=== PATIENT | male | born 1955 | race Caucasian/White ===

== ENCOUNTER 2019-06-06 09:37 | Emergency (ER) | payer OTHER, MEDICARE ==
--- NOTE | 2019-06-06 09:45 | PDOC ---
History of Present Illness - General Chief Complaint: Respiratory Stated Complaint: FEVER Time Seen by Provider: 06/06/19 09:45 History Source: Patient Exam Limitations: No Limitations - History of Present Illness Initial Comments: 64 year old male with PMH HTN, BPH (recently started on flomax, recent urinary cath removed), multiple myeloma (last neutropenic fever 01/2018) presented to ED for fever since last night. Pt reported dry cough, body aches, sore throat. Pt denied nausea, vomiting, diarrhea, chest pain, shortness of breath, rash, dysuria, increased urinary frequency, headache. Pt reported he had a urinary catheter placed in the last couple of weeks for BPH, saw urology outpatient, had it removed and was started on Flomax. ROS General: denied fever, chills, generalized weakness. HEENT: denied sore throat, rhinorrhea, ear pain. Cardiovascular: denied chest pain, palpitations, syncope, diaphoresis. Respiratory: denied shortness of breath, cough, sputum production, hemoptysis. Gastrointestinal: denied abdominal pain, nausea, vomiting, diarrhea, constipation, blood in stool. Genitourinary: denied dysuria, increased urinary frequency, hematuria, urinary incontinence, flank pain. Back: denied back pain. Musculoskeletal: denied joint pain, muscle pain, joint swelling. Neurological: denied headache, dizziness, numbness, tingling, weakness. Integumentary: denied rash, laceration, abrasion. Hematologic/Lymphatic: denied bruising or bleeding. PE Constitutional: Well-nourished, Well-developed, appearing stated age. HEENT: head is normocephalic, atraumatic. EOMI. PERRLA. no posterior pharyngeal erythema. no tonsillar swelling or exudates bilaterally. uvula midline. no peritonsillar swelling, tenderness or abscess. no jaw tenderness or misalignment. Neck: supple. Full ROM. Cardiovascular: regular heart rhythm. no murmurs. no pericardial friction rub. Respiratory: clear to auscultation bilaterally, but decreased breath sounds on the right. no crackles, rhonchi or wheezing. no stridor. Gastrointestinal: soft, nontender. normal bowel sounds. no rebound, guarding, masses. Extremities: peripheral pulses intact. no lower extremity edema. Neurological: CN 2-12 grossly intact. moves all four extremities. Psych: awake, alert, oriented x3. follows commands. answers questions appropriately. Past History - Past Medical History Allergies/Adverse Reactions: Allergies Allergy/AdvReac Type Severity Reaction Status Date / Time epinephrine Allergy Severe Low Blood Verified 06/06/19 09:48 Pressure Home Medications: Ambulatory Orders Aspirin [Aspir-Low] 81 mg PO HS 09/25/13 Multivitamin [Daily Vitamin] 1 each PO DAILY tablet 09/25/13 Divalproex Sodium [Depakote] 250 mg PO DAILY tablet 03/31/14 Gabapentin 300 mg PO HS capsule 03/31/14 Rosuvastatin Calcium [Crestor] 5 mg PO BIW tablet 07/01/14 Niacinamide [Niacin] 500 mg PO DAILY tablet 05/18/15 clonazePAM [KlonoPIN] 0.5 mg PO TID tablet 07/19/16 Desvenlafaxine Succinate [Pristiq] 100 mg PO DAILY tablet 11/15/16 Lurasidone HCl [Latuda -] 20 mg PO DAILY tablet 11/15/16 Dexamethasone 01/20/18 Divalproex [Depakote -] 750 mg PO HS 01/20/18 Lovastatin 10 mg PO HS 01/20/18 Valacyclovir HCl [Valtrex] 500 mg PO DAILY 01/20/18 Velcade 01/20/18 Acetaminophen [Tylenol .Regular Strength -] 650 mg PO Q6H PRN tablet 01/24/18 Doxycycline Hyclate 100 mg PO BID #28 capsule 01/24/18 Lidocaine 2% Jelly [Xylocaine 2% Jelly -] 1 applic TP BID #1 tube 05/25/19 Azithromycin [Zithromax 250mg Tablets -] 250 mg PO UTDICT #6 tab 06/06/19 - Psycho Social/Smoking Cessation Hx Smoking History: Unknown if ever smoked Have you smoked in the past 12 months: No Number of Cigarettes Smoked Daily: 0 If you are a former smoker, when did you quit?: 2009 Hx Alcohol Use: Yes (SOCIAL) Drug/Substance Use Hx: No Substance Use Type: Alcohol Hx Substance Use Treatment: No ED Treatment Course - LABORATORY CBC & Chemistry Diagram: 06/06/19 10:28 06/06/19 10:28 Medical Decision Making - Medical Decision Making 64 year old male with above PMH presented to ED for cough, body aches, fever since last night. Initial Vital Signs Temp Pulse Resp BP Pulse Ox 100 F H 116 H 20 139/84 97 06/06/19 09:39 06/06/19 09:39 06/06/19 09:39 06/06/19 09:39 06/06/19 09:39 Labs ordered: sepsis order set, influenza Imaging ordered: CXR Medications ordered: normal saline bolus 1000 cc once 06/06/19 10:16 Pt;s Oncologist Dr. Fitch called, , reported she would probably recommend pt be admitted, will call back with more lab work. 06/06/19 11:16 CXR report: Name: BARTOL[facility] KOENIG DEPARTMENT OF RADIOLOGY Phys: Nancy Jernigna RESIDENT : [id number] Age: 64 Sex: M [facility] Acct: [id number] Loc: [address] Exam Date: 06/06/19 Status: [facility] [place] [address] Unit Number: [id number] EXAM #: TYPE/EXAM: RESULT: [id number] RAD/CHEST PA LAT Chest: Fever and cough. 2 views of the chest reveal scoliosis with convexity to the right, clear well aerated lungs, normal mediastinum and sharp angles. The soft tissues are intact. Since 12/20/2018, there is no change of an adverse nature. Impression: No acute chest pathology. Reported By: Bartolome Geiger MD 06/06/19 1023 06/06/19 12:18 Laboratory Last Values WBC 4.6 K/mm3 (4.0-10.8) 06/06/19 10:28 RBC 3.51 M/mm3 (4.00-5.60) L 06/06/19 10:28 Hgb 11.5 GM/dl (11.7-16.9) L 06/06/19 10:28 Hct 36.3 % (35.4-49) 06/06/19 10:28 MCV 103.3 fl (80-96) H 06/06/19 10:28 MCH 32.9 pg (25.7-33.7) 06/06/19 10:28 MCHC 31.8 g/dl (32.0-35.9) L 06/06/19 10:28 RDW 14.8 % (11.9-15.9) 06/06/19 10:28 Plt Count 104 K/MM3 (134-434) L D 06/06/19 10:28 MPV 7.6 fl (7.5-11.1) 06/06/19 10:28 Absolute Neuts (auto) 3.5 K/mm3 06/06/19 10:28 Neutrophils % 76.0 % (42.8-82.8) 06/06/19 10:28 Lymphocytes % 13.3 % (8-40) D 06/06/19 10:28 Monocytes % 8.1 % (3.8-10.2) 06/06/19 10:28 Eosinophils % 2.2 % (0-4.5) D 06/06/19 10:28 Basophils % 0.4 % (0-2.0) 06/06/19 10:28 PT with INR 13.9 SEC (10.2-13.0) H 06/06/19 10:30 INR 1.25 (0.82-1.09) H 06/06/19 10:30 PTT (Actin FS) 28.8 SECONDS (25.2-36.5) 06/06/19 10:30 Sodium 138 mmol/L (136-145) 06/06/19 10:28 Potassium 3.3 mmol/L (3.5-5.1) L 06/06/19 10:28 Chloride 102 mmol/L (98-107) 06/06/19 10:28 Carbon Dioxide 27 mmol/L (21-32) 06/06/19 10:28 Anion Gap 9 MMOL/L (8-16) 06/06/19 10:28 BUN 15.0 mg/dl (7-18) 06/06/19 10:28 Creatinine 0.7 mg/dl (0.55-1.3) 06/06/19 10:28 Est GFR (CKD-EPI)AfAm 116.40 06/06/19 10:28 Est GFR (CKD-EPI)NonAf 100.43 06/06/19 10:28 Random Glucose 100 mg/dl (74-106) 06/06/19 10:28 Lactic Acid 1.0 mmol/L (0.4-2.0) 06/06/19 10:28 Calcium 8.0 mg/dl (8.5-10) L 06/06/19 10:28 Total Bilirubin 1.4 mg/dl (0.2-1) H 06/06/19 10:28 AST 19 U/L (15-37) 06/06/19 10:28 ALT 18 U/L (13-61) 06/06/19 10:28 Alkaline Phosphatase 42 U/L (45-117) L 06/06/19 10:28 Troponin I 0.03 ng/ml (0.00-0.05) 06/06/19 10:30 Total Protein 5.7 g/dl (6.4-8.2) L 06/06/19 10:28 Albumin 3.5 g/dl (3.4-5.0) 06/06/19 10:28 Influenza A (Rapid) Negative (Negative) 06/06/19 10:35 Influenza B (Rapid) Negative (Negative) 06/06/19 10:35 I discussed the results with Oncologist Dr. Fitch, she reported based on current lab results and pts current clinical status he could likely be discharged. Will wait for UA and rediscuss. 06/06/19 12:26 Urine Test Results Urine Color Yellow 06/06/19 10:18 Urine Appearance Clear 06/06/19 10:18 Urine pH 6.5 (4.5-8) 06/06/19 10:18 Urine Protein 1+ (NEGATIVE) H 06/06/19 10:18 Urine Glucose (UA) Negative (NEGATIVE) 06/06/19 10:18 Urine Ketones 1+ (NEGATIVE) H 06/06/19 10:18 Urine Blood Negative (NEGATIVE) 06/06/19 10:18 Urine Nitrite Negative (NEGATIVE) 06/06/19 10:18 Urine Bilirubin 1+ (NEGATIVE) H 06/06/19 10:18 Ur Leukocyte Esterase Negative (NEGATIVE) 06/06/19 10:18 Negative for UTI. 06/06/19 12:29 Vital Signs Temperature 99.5 F 06/06/19 11:30 Pulse Rate 84 06/06/19 11:30 Respiratory Rate 20 06/06/19 11:30 Blood Pressure 116/63 06/06/19 11:30 O2 Sat by Pulse Oximetry (%) 99 06/06/19 11:30 Pt reported improvement of symptoms. Fever improved with outpatient Tylenol use. Tachycardia improved with fever control and IV fluid hydration. Dr. Fitch advised discharge with Z-pack. Pt discharged, advised to F/U with Oncology Monday and PCP outpatient. Hold Rev until symptoms improve. Discussed with patient, he agreed with plan for care. Discharge - Discharge Information Problems reviewed: Yes Clinical Impression/Diagnosis: Viral syndrome, Cough Condition: Improved Disposition: HOME - Admission No - Additional Discharge Information Prescriptions: Azithromycin [Zithromax 250mg Tablets -] 250 mg PO UTDICT #6 tab - Follow up/Referral Referrals: Ji Jernigan MD [Primary Care Provider] - - Patient Discharge Instructions Patient Printed Discharge Instructions: DI for Viral Syndrome Additional Instructions: Follow up with your primary care doctor within 3 days regarding your Emergency Room visit. Your care is not complete until you follow up. Follow up with your oncologist ON MONDAY in the office regarding your Emergency Room visit. Your care is not complete until you follow up. Call the office today and tell them you were told you were going to be given an appointment. Drink lots of fluids to stay hydrated. TAKE Tylenol over the counter for pain/headache/fever. Take as advised on label. Wear a mask when out in public until you have been fever free for 24 hours. Wash your hands a lot to prevent spreading your infection. I have sent a prescription to your pharmacy for a Z-pack (antibiotic), take as advised on label. STOP taking your Revlemid until you are evaluated by your Oncologist. Return to the Emergency Department for increasing pain, increasing fever, chest pain, shortness of breath, lightheadedness, passing out, increasing weakness or any other new, worsening or concerning symptoms. - Post Discharge Activity
[2019-06-06] MEDS ORDERED: SODIUM CHLORIDE 1,000 ML IV STA (10:01)
[2019-06-06 10:02] VITALS: BMI 25.3
[2019-06-06 10:54] LABS: BASO % 0.4 % (0-2.0); EOS % 2.2 % (0-4.5); HEMATOCRIT 36.3 % (35.4-49); HEMOGLOBIN 11.5 GM/dl (11.7-16.9); LYMPH % 13.3 % (8-40); MCH 32.9 pg (25.7-33.7); MCHC 31.8 g/dl (32.0-35.9); MEAN CELL VOLUME 103.3 fl (80-96); MEAN PLT VOLUME 7.6 fl (7.5-11.1); MONO % 8.1 % (3.8-10.2); PLATELET COUNT 104 K/MM3 (134-434); RBC 3.51 M/mm3 (4.00-5.60); RDW 14.8 % (11.9-15.9); WHITE BLOOD COUNT 4.6 K/mm3 (4.0-10.8)
[2019-06-06 11:00] LABS: ALBUMIN 3.5 g/dl (3.4-5.0); BILIRUBIN,TOTAL 1.4 mg/dl (0.2-1); CREATININE 0.7 mg/dl (0.55-1.3); POTASSIUM 3.3 mmol/L (3.5-5.1); TOT PROT 5.7 g/dl (6.4-8.2)
[2019-06-06 11:15] LABS: ACTIVATED PTT 28.8 SECONDS (25.2-36.5)
[2019-06-06 11:19] LABS: INR 1.25 (0.82-1.09); PROTHROMBIN TIME (PATIENT) 13.9 SEC (10.2-13.0)
[2019-06-06 11:56] VITALS: BP 116/63; PULSE 84; TEMP 99.5
[2019-06-06 12:50] LABS: URINE MUCUS 2+
--- NOTE | 2019-06-07 13:38 | EKG ---
Test Reason : Blood Pressure : / mmHG Vent. Rate : 091 BPM Atrial Rate : 091 BPM P-R Int : 136 ms QRS Dur : 086 ms QT Int : 372 ms P-R-T Axes : 059 054 076 degrees QTc Int : 457 ms NORMAL SINUS RHYTHM SEPTAL INFARCT , AGE UNDETERMINED ABNORMAL ECG WHEN COMPARED WITH ECG OF 20-JAN-2018 17:01, NO SIGNIFICANT CHANGE WAS FOUND Confirmed by AMADEO ZAVALA MD ([id number]) on 06/07/2019 1:38:17 PM Referred By: JT AREVALO Confirmed By:AMADEO ZAVALA MD
--- NOTE | 2019-06-07 14:54 | PDOC ---
Attending Attestation - Resident Resident Name: Nancy Jernigan - ED Attending Attestation I have performed the following: I have examined & evaluated the patient, The case was reviewed & discussed with the resident, I agree w/resident's findings & plan, Exceptions are as noted - HPI HPI: 06/07/19 14:51 64-year-old male history of multiple myeloma currently getting oral chemo also history of BPH with a recent urinary indwelling catheter which was removed currently on Flomax here today complaining of subjective fevers and chills. Patient states symptoms started last night. He has had some generalized body aches and cough denies any nausea vomiting no abdominal pain denies any new known sick contacts no rash noted. States that he has had a history of neutropenia in the past but his most recent labs were normal. He follows with oncologist Dr. Fitch - Physicial Exam PE: 06/07/19 14:52 Patient is awake alert no acute distress has moist mucous membranes. There is some clear rhinorrhea lungs are clear bilaterally no appreciated crackles or wheezes. Heart is regular no murmurs rubs or gallops abdomen is soft nontender extremities are warm and well-perfused skin is warm and dry no appreciated rash patient is awake alert and oriented x3 - Medical Decision Making 06/07/19 14:52 64-year-old male history of multiple myeloma currently on chemo here today complaining of subjective fevers chills Reiger's and body aches. With a known recent urinary catheterization. On my exam he is well-appearing there is no abdominal tenderness differential includes a viral URI, influenza, UTI, other infectious source. Will rule out neutropenia as the patient has a history and is currently immunosuppressed. Chest x-ray was negative for any acute infection UA was negative for UTI viral swab was sent and is negative. To the fact the patient is immunosuppressed with high risk and recently has had a cough we will treat him with azithromycin case and plan discussed with his oncologist Dr. Fitch who supports the decision. With a negative flu swab will hold Tamiflu at this point as it is with minimal benefit and likely not indicated. Told to follow-up on Monday 5 days from today and told to return sooner for any worsening shortness of breath persistent fevers nausea vomiting or any concerns
== END 2019-06-06 13:04 | disposition home or self-care (01) ==
LOC: FER 09:37
PROC: 3E0337Z Introduction of Electrolytic and Water Balance Substance into Peripheral Vein, Percutaneous Approach (ICD-10-PCS; principal; 2019-06-06)
DX: B34.9 Viral infection, unspecified (principal); R05 Cough; I10 Essential (primary) hypertension; N40.0 Benign prostatic hyperplasia without lower urinary tract symptoms; C90.00 Multiple myeloma not having achieved remission; Z92.21 Personal history of antineoplastic chemotherapy; Z88.8 Allergy status to other drugs, medicaments and biological substances; Z79.82 Long term (current) use of aspirin
CPT/HCPCS: 36415; 71046-TC-FY; 80053; 81003; 81015; 83605; 84484; 85025; 85610; 85730; 87040; 87804; 93005; 99283-25; J7030

== ENCOUNTER 2021-11-10 07:02 | Day surgery (SDC) | payer OTHER, BC ==
[2021-11-03 15:55] VITALS: BMI 25.9
[2021-11-10] MEDS ORDERED: BUPIVACAINE HCL/PF 0.25% (2.5MG/ML) 10 ML VIAL ONE (07:16)
[2021-11-10] MEDS ORDERED: LIDOCAINE HCL 2% (20ML MULTI-DOSE VIAL) ONE (07:17)
[2021-11-10] MEDS ORDERED: PROPOFOL 20 ML ONE ×2 (07:29)
[2021-11-10] MEDS ORDERED: SUCCINYLCHOLINE CHLORIDE 200 MG/10 ML SYRINGE ONE (07:30)
[2021-11-10] MEDS ORDERED: MIDAZOLAM HCL 2 MG/2 ML SINGLE DOSE VIAL ONE (07:30)
[2021-11-10] MEDS ORDERED: ONDANSETRON 4 MG/2 ML VIAL ONE (07:34)
[2021-11-10] MEDS ORDERED: DEXAMETHASONE SOD PHOSPHATE 4 MG/1 ML VIAL ONE (07:34)
[2021-11-10] MEDS ORDERED: ceFAZolin SODIUM 1 GM VIAL ONE (08:19)
[2021-11-10 09:26] VITALS: BP 118/57; PULSE 71; TEMP 97.2
== END 2021-11-10 09:50 | disposition home or self-care (01) ==
LOC: FASU 07:02
PROVIDERS: ATTEND Orthopaedic Surgery Hand Surgery
PROC: 01N50ZZ Release Median Nerve, Open Approach (ICD-10-PCS; principal; 2021-11-10 08:23)
DX: G56.01 Carpal tunnel syndrome, right upper limb (principal)